=== PATIENT | female | born 1945 | race Two or more races ===

== ENCOUNTER 2024-06-05 12:47 | Emergency (ER) | payer OTHER ==
[~2024-06-05] VITALS: Ht 167.6 cm; Wt 66.2 kg
[2024-06-05] MEDS ORDERED: TRAMADOL HCL 50 MG TABLET PO ONE (13:15)
[2024-06-05] MEDS ORDERED: MEPERIDINE HCL/PF 25 MG/ML VIAL IM ONE (18:15)
[2024-06-05] MEDS ORDERED: OxyCODONE HCL/APAP UD (PERCOCET) PO ONE (20:00)
== END 2024-06-05 23:09 | disposition home or self-care (01) ==
LOC: ER 12:47
DX: S32.10XA Unspecified fracture of sacrum, initial encounter for closed fracture (principal); W18.39XA Other fall on same level, initial encounter; Y93.89 Activity, other specified; Y92.89 Other specified places as the place of occurrence of the external cause; Y99.9 Unspecified external cause status; I10 Essential (primary) hypertension; Z88.8 Allergy status to other drugs, medicaments and biological substances; M51.369 Other intervertebral disc degeneration, lumbar region without mention of lumbar back pain or lower extremity pain
CPT/HCPCS: 72131; 96372; 99283; J3490

== ENCOUNTER 2024-06-07 16:09 | Emergency (ER) | payer OTHER ==
[~2024-06-07] VITALS: Ht 165.1 cm; Wt 70.8 kg
[2024-06-07] MEDS ORDERED: MEPERIDINE HCL 25 MG/ML AMPUL IV ONE ×2 (16:45→22:00)
[2024-06-07 17:14] LABS: HEMATOCRIT 36.7 % (36.0-45.00); HEMOGLOBIN 12.4 g/dL (12.0-15.00); MEAN CORPUSCULAR HGB CONC 33.7 g/dl (32.0-36.0); PLATELET COUNT 218 K/uL (150-450); RED BLOOD COUNT 4.27 M/uL (4.00-6.00); RED CELL DISTRIBUTION WIDTH 14.9 % (11.5-14.5)
[2024-06-07 17:40] LABS: CALCIUM 9.3 mg/dL (8.5-10.1); CREATININE SERUM 0.55 mg/dL (0.55-1.02); GFR 107.18; POTASSIUM 4.55 mEq/L (3.5-5.1)
[2024-06-07 19:23] LABS: URINE APPEARANCE Clear; URINE BILIRRUBIN Negative (NEGATIVE); URINE BLOOD Small; URINE COLOR Yellow; URINE GLUCOSE Negative (NEGATIVE); URINE KETONE Negative (NEGATIVE); URINE LEUKOCYTE Large; URINE NITRATE Negative; URINE PROTEIN Trace (NEGATIVE)
[2024-06-07 19:27] LABS: URINE BACTERIA 321.8 uL (0.0-1933); URINE EPITHELIAL CELLS 6.3 uL (0.0-38.8); URINE RBC 79.9 uL (0.0-20.8); URINE WBC 203.8 uL (0.0-23.2)
[2024-06-07 19:44] LABS: URINE CAST 0.14 uL (0.0-1.40)
[2024-06-07] MEDS ORDERED: 0.9 % SODIUM CHLORIDE 1,000 ML IV SCH (22:00)
[2024-06-08] MEDS ORDERED: KETOROLAC TROMETHAMINE 30 MG VIAL IV STA (06:24)
[2024-06-08] MEDS ORDERED: KETOROLAC TROMETHAMINE 30 MG VIAL ONE ×3 (06:26→23:41)
[2024-06-08] MEDS ORDERED: OxyCODONE HCL/APAP UD (PERCOCET) PO PRN (06:45)
[2024-06-08] MEDS ORDERED: METOPROLOL SUCCINATE 100 MG TAB.SR.24H PO SCH (06:45)
[2024-06-08] MEDS ORDERED: CEFTRIAXONE SODIUM 1,000 MG VIAL IV STA (09:23)
[2024-06-08] MEDS ORDERED: CEFTRIAXONE SODIUM 1,000 MG VIAL ONE (09:33)
[2024-06-08] MEDS ORDERED: KETOROLAC TROMETHAMINE 30 MG VIAL IV SCH (12:00)
[2024-06-08] MEDS ORDERED: ACETAMINOPHEN WITH CODEINE 1 UDTAB TABLET PO STA (12:10)
[2024-06-08] MEDS ORDERED: CEFTRIAXONE SODIUM 1,000 MG VIAL IV ONE (12:30)
[2024-06-08] MEDS ORDERED: FAMOtidine 10 MG/ML (4ML VIAL) IV ONE (18:00)
[2024-06-08] MEDS ORDERED: POLYETHYLENE GLYCOL 3350 17 GM BLIST.PACK PO ONE (18:00)
[2024-06-08] MEDS ORDERED: MORPHINE SULFATE 4 MG/ML VIAL IV ONE (18:00)
[2024-06-08] MEDS ORDERED: FAMOTIDINE/PF 20 MG/2 ML VIAL ONE (18:15)
[2024-06-09] MEDS ORDERED: KETOROLAC TROMETHAMINE 30 MG VIAL ONE ×2 (07:27→17:26)
[2024-06-09 07:52] LABS: HEMATOCRIT 35.5 % (36.0-45.00); HEMOGLOBIN 11.6 g/dL (12.0-15.00); MEAN CELL VOLUME 87.4 fL (80.00-100.00); MEAN CORPUSCULAR HEMOGLOBIN 28.7 pg (27.00-32.0); MEAN CORPUSCULAR HGB CONC 32.8 g/dl (32.0-36.0); PLATELET COUNT 243 K/uL (150-450); RED BLOOD COUNT 4.06 M/uL (4.00-6.00); RED CELL DISTRIBUTION WIDTH 14.7 % (11.5-14.5)
[2024-06-09 08:47] LABS: URINE APPEARANCE Clear; URINE BILIRRUBIN Negative (NEGATIVE); URINE BLOOD Moderate; URINE COLOR Yellow; URINE GLUCOSE Negative (NEGATIVE); URINE KETONE 15 (NEGATIVE); URINE LEUKOCYTE Negative; URINE NITRATE Negative; URINE PROTEIN Negative (NEGATIVE)
[2024-06-09 08:48] LABS: URINE BACTERIA 8.5 uL (0.0-1933); URINE EPITHELIAL CELLS 2.5 uL (0.0-38.8); URINE RBC 91.6 uL (0.0-20.8); URINE WBC 3.3 uL (0.0-23.2)
[2024-06-09 08:50] LABS: URINE CAST 0.29 uL (0.0-1.40)
[2024-06-09 08:57] LABS: INR 0.97; PARTIAL THROMBOPLASTIN TIME 28.1 SECONDS (22.0-34.0); PROTHROMBIN TIME 10.6 SECONDS (9.0-11.5)
[2024-06-09] MEDS ORDERED: SODIUM CHLORIDE 0.45 % 1,000 ML IV SCH (09:00)
[2024-06-09 09:03] LABS: ALBUMIN 2.6 gm/dL (3.4-5.0); BILIRUBIN TOTAL 0.64 mg/dL (0.3-1.2); CALCIUM 8.6 mg/dL (8.5-10.1); CREATININE SERUM 0.52 mg/dL (0.55-1.02); GFR 114.34; GLOBULINA 3.3 G/DL (2.4-3.5); POTASSIUM 4.11 mEq/L (3.5-5.1); TOTAL PROTEIN 5.9 gm/dL (6.4-8.2)
[2024-06-09] MEDS ORDERED: METOPROLOL TARTRATE 100 MG TABLET PO SCH (09:16)
== END 2024-06-09 20:46 | disposition designated cancer center or children's hospital (05) ==
LOC: ER 16:09
PROVIDERS: Emergency Medicine; General Practice
DX: S32.19XA Other fracture of sacrum, initial encounter for closed fracture (principal); W19.XXXA Unspecified fall, initial encounter; Y93.89 Activity, other specified; Y92.89 Other specified places as the place of occurrence of the external cause; Y99.8 Other external cause status; M54.9 Dorsalgia, unspecified; Z20.822 Contact with and (suspected) exposure to COVID-19; Z88.2 Allergy status to sulfonamides
CPT/HCPCS: 36415; 51702; 96365; 96366; 99285; J0696 ×2; J1885 ×2; J2270; J3490 ×3; J7030